=== PATIENT | female | born 1995 | race African-American/Black ===

== ENCOUNTER 2016-06-24 00:54 | Emergency (ER) | payer BC ==
[~2016-06-24] VITALS: Ht 162.6 cm; Wt 115.3 kg
[~2016-06-24 00:54] MED LIST: NO HOME MEDS; PROAIR HFA8.5 GM IH; ZOFRAN4 MG PO
[2016-06-24 01:36] LABS: HEMATOCRIT 40.1 % (36.0-46.0); MCHC 34.2 G/DL (30.0-36.0); MCV 84.8 FL (83-99); MEAN PLAT.VOLUME 9.2 uM^3 (9.5-12.4); PLATELET COUNT 358 K/uL (156-360); RBC DIS.WIDTH-SD 39.6 % (39-53); RED BLOOD COUNT 4.73 M/uL (3.80-5.20); WHITE BLOOD COUNT 9.4 K/uL (4.1-10.2)
[2016-06-24 01:46] LABS: CHLORIDE 107 mEq/L (99-109); POTASSIUM 4.2 mEq/L (3.7-5.4); SODIUM 140 mEq/L (136-147)
[2016-06-24 01:47] LABS: GLUCOSE 104 mg/dL (70-99)
[2016-06-24 01:49] LABS: ANION GAP 12 MEQ/L (2-14)
[2016-06-24 01:51] LABS: GFR ESTIMATE (CALCULATED) > 59 mL/min/
[2016-06-24 01:52] LABS: UREA NITROGEN (BUN) 14 mg/dL (9-23)
[2016-06-24 01:59] LABS: QUANTITATIVE HCG < 4.0 MIU/ML
[2016-06-24 02:01] LABS: TROP-I INTERPRETATION NEGATIVE; TROPONIN-I < 0.01 ng/mL (0.0-0.30)
[2016-06-24 02:24] VITALS: BP 108/80
== END 2016-06-24 02:27 | disposition home or self-care (01) ==
LOC: EME 00:54
PROVIDERS: Emergency Medicine
DX: I47.1 Supraventricular tachycardia (principal); R00.2 Palpitations; R07.9 Chest pain, unspecified; E03.9 Hypothyroidism, unspecified; Z88.8 Allergy status to other drugs, medicaments and biological substances
CPT/HCPCS: 71010; 80048; 84484; 84702; 85027; 93005; 99281; 99284; J0153; J2405